=== PATIENT | female | born 1990 | race Asian ===

== ENCOUNTER 2019-02-02 05:39 | Observation (INO) | payer OTHER ==
[2019-02-02 07:17] VITALS: BMI 32.9
[2019-02-02] MEDS ORDERED: SODIUM CHLORIDE 1,000 ML IV STA ×2 (08:36→10:03)
[2019-02-02] MEDS ORDERED: ONDANSETRON 4 MG/2 ML VIAL IVPB ONE ×2 (08:36→12:16)
[2019-02-02] MEDS ORDERED: ACETAMINOPHEN 1000 MG/100 ML VIAL (NON FORMULARY) IVPB ONE (08:36)
[2019-02-02] MEDS ORDERED: ACETAMINOPHEN INJECTION 100 ML IVPB ONE (08:40)
[2019-02-02] MEDS ORDERED: ONDANSETRON 4 MG/2 ML VIAL ONE (08:40)
--- NOTE | 2019-02-02 09:08 | PDOC ---
Documentation entered by Denise Flores SCRIBE, acting as scribe for Dwayne Barnard MD. Dwayne Barnard MD: This documentation has been prepared by the Mark camarillo Sammi, SCRIBE, under my direction and personally reviewed by me in its entirety. I confirm that the documentation accurately reflects all work, treatment, procedures, and medical decision making performed by me. History of Present Illness - General Chief Complaint: Nausea/Vomiting Stated Complaint: VOMITING Time Seen by Provider: 02/02/19 07:24 - History of Present Illness Initial Comments: 02/02/19 08:38 The patient is a 28 year old who presents to the emergency department for evaluation of multiple episodes of vomiting and diarrhea with associated right lower quadrant pain since last night. The patient also notes a headache, dizziness and chills. Denies sick contact or recent travel. Denies dysuria. Denies vaginal discharge/bleeding. Denies flank pain. LMP was 2 weeks ago. Denies chest pain or shortness of breath. Denies dysuria, frequency, urgency and hematuria. PCP: Haydee Gilbert Medical history: DM Surgical history: none reported Allergies: NKA Past History - Past Medical History Allergies/Adverse Reactions: Allergies Allergy/AdvReac Type Severity Reaction Status Date / Time No Known Allergies Allergy Verified 02/02/19 07:17 Home Medications: Ambulatory Orders Levonorgestrel [Next Choice One Dose] 1.5 mg PO ASDIR 02/02/19 Levothyroxine [Synthroid -] 50 mcg PO DAILY 02/02/19 Metformin HCl [Glucophage] 1,000 mg PO HS 02/02/19 Multivitamins [Tab-A-Vit -] 1 tab PO DAILY 02/02/19 - Suicide/Smoking/Psychosocial Hx Smoking History: Never smoked Have you smoked in the past 12 months: No Information on smoking cessation initiated: No Hx Alcohol Use: Yes Drug/Substance Use Hx: No Review of Systems - Review of Systems Comments:: 02/02/19 08:39 GENERAL/CONSTITUTIONAL: (+) chills No fever. No weakness. HEAD, EYES, EARS, NOSE AND THROAT: No change in vision. No ear pain or discharge. No sore throat. CARDIOVASCULAR: No chest pain, no shortness of breath, no loss of consciousness RESPIRATORY: No cough, wheezing, or hemoptysis. GASTROINTESTINAL: (+)RLQ pain (+)nausea (+)vomiting (+)diarrhea. GENITOURINARY: No dysuria, frequency, or change in urination. MUSCULOSKELETAL: No joint or muscle swelling or pain. No neck or back pain. SKIN: No rash NEUROLOGIC: No vertigo, no change in strength/sensation. *Physical Exam - Vital Signs Last Vital Signs Temp Pulse Resp BP Pulse Ox 98 F 101 H 19 143/94 100 02/02/19 05:40 02/02/19 05:40 02/02/19 05:40 02/02/19 05:40 02/02/19 05:40 - Physical Exam Comments: 02/02/19 09:09 "GENERAL: Awake, alert, and fully oriented, in no acute distress. HEAD: No signs of trauma EYES: PERRLA, EOMI, sclera anicteric, conjunctiva clear ENT: Auricles normal inspection, hearing grossly normal, nares patent, oropharynx clear without exudates. Moist mucosa NECK: Nontender, no stepoffs, Normal ROM, supple, no lymphadenopathy, JVD, or masses LUNGS: Breath sounds equal, clear to auscultation bilaterally. No wheezes, and no crackles HEART: Regular rate and rhythm, normal S1 and S2, no murmurs, rubs or gallops ABDOMEN: + RLQ TTP, normoactive bowel sounds. No guarding, no rebound. No masses EXTREMITIES: Normal range of motion, no edema. No clubbing or cyanosis. No cords, erythema, or tenderness NEUROLOGICAL: Cranial nerves II through XII intact. 5/5 strength and sensation in all extremities, Normal speech, normal gait, normal cerebellar function SKIN: Warm, Dry, normal turgor, no rashes or lesions noted. ED Treatment Course - LABORATORY CBC & Chemistry Diagram: 02/02/19 08:50 02/02/19 08:39 Medical Decision Making - Medical Decision Making 02/02/19 09:09 28 F with N+V+D and RLQ pain. Suspect gastroenteritis but will r/o appendicitis. - Labs, UA, UPT - CTAP - IVF, tylenol 02/02/19 14:[address] equivocal, shows dilated appendix 9mm, cannot exclude appendicitis Discussed with Dr. Reyes, who will evaluate pt *DC/Admit/Observation/Transfer Diagnosis at time of Disposition: Appendicitis - Discharge Dispostion Condition at time of disposition: Fair Decision to Admit order: Yes - Referrals - Patient Instructions - Post Discharge Activity - Attestations Physician Attestion: 02/02/19 14:15 I, Dr. Dwayne Barnard MD, attest that this document has been prepared under my direction and personally reviewed by me in its entirety. I further attest, that it accurately reflects all work, treatment, procedures and medical decision -making performed by me.
[2019-02-02 09:14] LABS: BASO % 0.8 % (0-2.0); EOS % 1.8 % (0-4.5); HEMATOCRIT 40.3 % (32.4-45.2); HEMOGLOBIN 13.5 GM/dL (10.7-15.3); LYMPH % 18.3 % (8-40); MCH 28.8 pg (25.7-33.7); MCHC 33.4 g/dl (32.0-36.0); MEAN CELL VOLUME 86.4 fl (80-96); MEAN PLT VOLUME 9.1 fl (7.5-11.1); MONO % 6.2 % (3.8-10.2); NEUT % 72.9 % (42.8-82.8); PLATELET COUNT 224 K/MM3 (134-434); RBC 4.67 M/mm3 (3.60-5.2); RDW 15.5 % (11.6-15.6); WHITE BLOOD COUNT 7.8 K/mm3 (4.0-10.0)
[2019-02-02 09:28] LABS: EPI CELLS 5.9 /HPF (0-5/HPF); HYALINE CASTS 3 /lpf (0-8); PH,URINE 6.5 (5.0-8.0); URINE APPEARANCE CLEAR; URINE BACTERIA 668.4 /hpf (NEGATIVE); URINE BILIRUBIN NEGATIVE (NEGATIVE); URINE COLOR YELLOW; URINE GLUCOSE (UA) NEGATIVE (NEGATIVE); URINE KETONE 1+ (NEGATIVE); URINE LEUK ESTERASE 1+ (NEGATIVE); URINE NITRITE NEGATIVE (NEGATIVE); URINE PROTEIN NEGATIVE (NEGATIVE); URINE RBC 4 /hpf (0-4); URINE WBC 5 /hpf (0-5)
[2019-02-02 09:34] LABS: BILIRUBIN,TOTAL 0.3 mg/dL (0.2-1); BLOOD UREA NITROGEN 10.2 mg/dL (7-18); CALCIUM 9.8 mg/dL (8.5-10.1); CREATININE 0.6 mg/dL (0.55-1.3); TOT PROT 7.8 g/dl (6.4-8.2)
[2019-02-02 10:14] LABS: INR 0.98 (0.83-1.09); PROTHROMBIN TIME (PATIENT) 11.6 SEC (9.7-13.0)
[2019-02-02] MEDS ORDERED: PIPERACILLIN/TAZOB 4.5 GM 4.5 GM/100 ML BAG IVPB ONE ×2 (14:08→14:31)
--- NOTE | 2019-02-02 16:34 | HP ---
CHIEF COMPLAINT: PCP: HISTORY OF PRESENT ILLNESS: ER course was notable for: (1) (2) (3) Recent Travel: PAST MEDICAL HISTORY: PAST SURGICAL HISTORY: Social History: Smoking: Alcohol: Drugs: Family History: Allergies No Known Allergies Allergy (Verified 02/02/19 07:17) HOME MEDICATIONS: Home Medications Medication Instructions Recorded Levonorgestrel [Next Choice One 1.5 mg PO ASDIR 02/02/19 Dose] Levothyroxine [Synthroid -] 50 mcg PO DAILY 02/02/19 Metformin HCl [Glucophage] 1,000 mg PO HS 02/02/19 Metformin HCl [Glucophage] 500 mg PO AM 02/02/19 Multivitamins [Tab-A-Vit -] 1 tab PO DAILY 02/02/19 REVIEW OF SYSTEMS CONSTITUTIONAL: Absent: fever, chills, diaphoresis, generalized weakness, malaise, loss of appetite, weight change HEENT: Absent: rhinorrhea, nasal congestion, throat pain, throat swelling, difficulty swallowing, mouth swelling, ear pain, eye pain, visual changes CARDIOVASCULAR: Absent: chest pain, syncope, palpitations, irregular heart rate, lightheadedness , peripheral edema RESPIRATORY: Absent: cough, shortness of breath, dyspnea with exertion, orthopnea, wheezing, stridor, hemoptysis GASTROINTESTINAL: Absent: abdominal pain, abdominal distension, nausea, vomiting, diarrhea, constipation, melena, hematochezia GENITOURINARY: Absent: dysuria, frequency, urgency, hesitancy, hematuria, flank pain, genital pain MUSCULOSKELETAL: Absent: myalgia, arthralgia, joint swelling, back pain, neck pain SKIN: Absent: rash, itching, pallor HEMATOLOGIC/IMMUNOLOGIC: Absent: easy bleeding, easy bruising, lymphadenopathy, frequent infections ENDOCRINE: Absent: unexplained weight gain, unexplained weight loss, heat intolerance, cold intolerance NEUROLOGIC: Absent: headache, focal weakness or paresthesias, dizziness, unsteady gait, seizure, mental status changes, bladder or bowel incontinence PSYCHIATRIC: Absent: anxiety, depression, suicidal or homicidal ideation, hallucinations. PHYSICAL EXAMINATION Vital Signs - 24 hr 02/02/19 02/02/19 02/02/19 05:40 10:00 15:30 Temperature 98 F 97.7 F 98.0 F Pulse Rate 101 H Pulse Rate [ 86 92 H Right] Respiratory 19 18 18 Rate Blood Pressure 143/94 Blood Pressure 145/95 129/83 [Right Arm] O2 Sat by Pulse 100 98 96 Oximetry (%) GENERAL: Awake, alert, and fully oriented, in no acute distress. HEAD: Normal with no signs of trauma. EYES: Pupils equal, round and reactive to light, extraocular movements intact, sclera anicteric, conjunctiva clear. No lid lag. EARS, NOSE, THROAT: Ears normal, nares patent, oropharynx clear without exudates. Moist mucous membranes. NECK: Normal range of motion, supple without lymphadenopathy, JVD, or masses. LUNGS: Breath sounds equal, clear to auscultation bilaterally. No wheezes, and no crackles. No accessory muscle use. HEART: Regular rate and rhythm, normal S1 and S2 without murmur, rub or gallop. ABDOMEN: Soft, nontender, not distended, normoactive bowel sounds, no guarding, no rebound, no masses. No hepatomegaly or splenomegaly. MUSCULOSKELETAL: Normal range of motion at all joints. No bony deformities or tenderness. No CVA tenderness. UPPER EXTREMITIES: 2+ pulses, warm, well-perfused. No cyanosis. No clubbing. No peripheral edema. LOWER EXTREMITIES: 2+ pulses, warm, well-perfused. No calf tenderness. No peripheral edema. NEUROLOGICAL: Cranial nerves II-XII intact. Normal speech. Normal gait. PSYCHIATRIC: Cooperative. Good eye contact. Appropriate mood and affect. SKIN: Warm, dry, normal turgor, no rashes or lesions noted, normal capillary refill. Laboratory Results - last 24 hr 02/02/19 02/02/19 02/02/19 08:39 08:39 08:50 WBC RBC Hgb Hct MCV MCH MCHC RDW Plt Count MPV Absolute Neuts (auto) Neutrophils % Lymphocytes % Monocytes % Eosinophils % Basophils % Nucleated RBC % PT with INR INR PTT (Actin FS) 31.1 Sodium 138 Potassium 4.0 Chloride 103 Carbon Dioxide 27 Anion Gap 8 BUN 10.2 Creatinine 0.6 Est GFR (CKD-EPI)AfAm 143.77 Est GFR (CKD-EPI)NonAf 124.04 Random Glucose 112 H Calcium 9.8 Total Bilirubin 0.3 AST 39 H ALT 43 Alkaline Phosphatase 59 Total Protein 7.8 Albumin 4.0 Lipase 125 Urine Color Urine Appearance Urine pH Ur Specific [place] Urine Protein Urine Glucose (UA) Urine Ketones Urine Blood Urine Nitrite Urine Bilirubin Urine Urobilinogen Ur Leukocyte Esterase Urine WBC (Auto) Urine RBC (Auto) Urine Casts (Auto) U Epithel Cells (Auto) Urine Bacteria (Auto) Urine HCG, Qual Blood Type Antibody Screen 02/02/19 02/02/19 02/02/19 08:50 08:50 08:50 WBC 7.8 RBC 4.67 Hgb 13.5 Hct 40.3 MCV 86.4 MCH 28.8 MCHC 33.4 RDW 15.5 Plt Count 224 MPV 9.1 Absolute Neuts (auto) 5.7 Neutrophils % 72.9 Lymphocytes % 18.3 Monocytes % 6.2 Eosinophils % 1.8 Basophils % 0.8 Nucleated RBC % 0 PT with INR 11.60 INR 0.98 PTT (Actin FS) Sodium Potassium Chloride Carbon Dioxide Anion Gap BUN Creatinine Est GFR (CKD-EPI)AfAm Est GFR (CKD-EPI)NonAf Random Glucose Calcium Total Bilirubin AST ALT Alkaline Phosphatase Total Protein Albumin Lipase Urine Color Urine Appearance Urine pH Ur Specific [place] Urine Protein Urine Glucose (UA) Urine Ketones Urine Blood Urine Nitrite Urine Bilirubin Urine Urobilinogen Ur Leukocyte Esterase Urine WBC (Auto) Urine RBC (Auto) Urine Casts (Auto) U Epithel Cells (Auto) Urine Bacteria (Auto) Urine HCG, Qual Negative Blood Type Antibody Screen 02/02/19 02/02/19 02/02/19 08:50 08:50 11:07 WBC RBC Hgb Hct MCV MCH MCHC RDW Plt Count MPV Absolute Neuts (auto) Neutrophils % Lymphocytes % Monocytes % Eosinophils % Basophils % Nucleated RBC % PT with INR INR PTT (Actin FS) Sodium Potassium Chloride Carbon Dioxide Anion Gap BUN Creatinine Est GFR (CKD-EPI)AfAm Est GFR (CKD-EPI)NonAf Random Glucose Calcium Total Bilirubin AST ALT Alkaline Phosphatase Total Protein Albumin Lipase Urine Color Yellow Urine Appearance Clear Urine pH 6.5 Ur Specific [place] 1.015 Urine Protein Negative Urine Glucose (UA) Negative Urine Ketones 1+ H Urine Blood Negative Urine Nitrite Negative Urine Bilirubin Negative Urine Urobilinogen 1.0 Ur Leukocyte Esterase 1+ H Urine WBC (Auto) 5 Urine RBC (Auto) 4 Urine Casts (Auto) 3 U Epithel Cells (Auto) 5.9 Urine Bacteria (Auto) 668.4 Urine HCG, Qual Blood Type A POSITIVE A POSITIVE Antibody Screen Negative ASSESSMENT/PLAN: ATTENDING PHYSICIAN STATEMENT I saw and evaluated the patient. I reviewed the resident's note and discussed the case with the resident. I agree with the resident's findings and plan as documented. SUBJECTIVE: OBJECTIVE: ASSESSMENT AND PLAN:
--- NOTE | 2019-02-02 17:12 | PN ---
Progress Note (short form) - Note Progress Note: surgery clinically not appendicitis based on symptoms, exam, labs, and ct. full liquids. hold abx. possible d/c in am if continues to improve. full consult dictated.
--- NOTE | 2019-02-02 17:24 | PN ---
Teaching Attending Note Name of Resident: Minh Martinez ATTENDING PHYSICIAN STATEMENT I reviewed the resident's note and discussed the case with the resident. I agree with the resident's findings and plan as documented. SUBJECTIVE: 28yo F wtih no significant PMH presented to the ER wtih nausea and vomiting with RLQ x1 week. pt was taken to OR prior to my assessment and HPI as per ER staff. CT showing dilated appendix and plan for appendectomy per surgeon OBJECTIVE: Last Vital Signs Temp Pulse Resp BP Pulse Ox 98.0 F 92 H 18 129/83 96 02/02/19 15:30 02/02/19 15:30 02/02/19 15:30 02/02/19 15:30 02/02/19 15:30 ASSESSMENT AND PLAN: 28yo F wtih no significant PMH presented to the ER wtih nausea and vomiting with RLQ x1 week with dilated appendix on CT and planned for appendectomy 1. Acute appendicitis- taken straight to the OR for appendectomy prior to my assessment. NPO, IVF, prophylatic zosyn given in the ER. pain and nausea control. further recommendations per surgery. 2. +UA- will need to determine if patient ishaving symptoms. received zosyn x1 dose. check Ucx 3. DVT ppx- EAM 4. will assess patient post-operatively
--- NOTE | 2019-02-02 18:28 | CONS ---
DATE OF CONSULTATION: 02/02/2019 REASON FOR CONSULTATION: Acute appendicitis. REQUESTING PHYSICIAN: This is an emergency room consultation. BRIEF HISTORY: This is a 28-year-old female who presented to [facility] emergency room complaining of headache, nausea, vomiting and diarrhea since yesterday evening. Her pain is somewhat improved. While in the emergency room, she was noted to have some right lower quadrant tenderness. She had normal labs with unremarkable chemistries and an unremarkable urinalysis, although there were some signs of contamination. She had a CT scan of her abdomen and pelvis which showed an appendix that appeared to be normal except that it was mildly enlarged at 6 mm but it was filled with contrast as well as air all the way to the tip without enhancement of the abdominal wall, without inflammatory changes, without edema, and the abdominal wall was noted to be thin. At its largest diameter, it was noted to be 9 mm. The appendix was retrocecal in location. PAST MEDICAL HISTORY: Significant for diabetes. PAST SURGICAL HISTORY: Nil. FAMILY HISTORY: Noncontributory. ALLERGIES: She has no known drug allergies. HOME MEDICATIONS: control pills, Synthroid, metformin, multivitamins. REVIEW OF SYSTEMS: General: Admits to fatigue. Cardiac: Denies chest pain. Respiratory: Denies shortness of breath. Gastrointestinal: As stated in the HPI. Denies blood in her stool. Denies recent weight loss. States that her symptoms are currently improving and she is very hungry. Genitourinary: Denies dysuria. Musculoskeletal: Denies joint pain. Psychiatric: Denies depression or hearing voices. PHYSICAL EXAMINATION: General: This is an obese 28-year-old female in no distress. Vital signs: She is afebrile. Her vital signs are currently stable. Head: Normocephalic. Sclerae anicteric. Neck: Supple. Chest: Clear. Abdomen: Soft. There are stretch floyd but no obvious surgical scars or hernias. She has moderate right lower quadrant tenderness without guarding. She has mild left lower quadrant tenderness. She has absolutely no flank tenderness on deep percussion. Extremities: No edema. REVIEW OF LABORATORY DATA: As her HPI. IMAGING: As per HPI. ASSESSMENT: This is a 28-year-old female with headache, nausea, vomiting, diarrhea that is now improving. A CAT scan shows an enlarged appendix but one that is completely fluid filled without masses and without a thickened wall or inflammatory changes. Clinically, this is not appendicitis. It is most likely enteritis or food poisoning. The appendicitis is essentially ruled out as the clinical definition of appendicitis is an obstructed appendix. Since contrast completely filled it, it is not obstructed although it is enlarged in size. The contrast study actually confirms that it is not a mucocele, nor are there any appendiceal masses. At this point, since the patient is improving, I would recommend that she be observed. She did get a dose of antibiotic initially which will be stopped. We will put her on a diet at this point. I assume that by the morning, she will be remarkably well and can likely be discharged off antibiotics. The patient and her father, who is a dairy technologist at [facility] [facility] [employer], were offered appendectomy, even though I felt this to be unlikely appendicitis. The reason to offer the surgery was to remove diagnostic uncertainty. They both declined. The patient is currently nontoxic and clinically, I do not suspect appendicitis. DO PILO STREETER/[id number]
--- NOTE | 2019-02-02 19:53 | HP ---
CHIEF COMPLAINT: abdominal pain and nausea PCP: Dr. Haydee Gilbert HISTORY OF PRESENT ILLNESS: Jason Gong is a 28 year old female with a past medical history of DM (on metformin) and hypothyroidism who presented to the ED with a 1 day history of abdominal pain. She stated that she developed a headache, had an episode of NBNB vomiting and started to develop abdominal pain that first was located in the epigastric region that had since migrated to the RLQ. Stated that she had 5 total episodes of vomiting, all without blood. Additionally, she stated that she had some lightheadedness, generalized weakness, and several episodes of non-bloody diarrhea. This morning, she noted that she had feelings of chills. Denied close sick contacts, new food consumption, other members of the household with similar symptoms, recent travel. Last menstrual period was on the 13 of January. She presented to the ED and had an Abd/pelvis CT performed which showed a retrocecal appendix with present air and contrast but no periappendiceal inflammatory changes, and hepatomegaly with a fatty liver. The patient had no abnormalities of vitals and no gross derangements in laboratory work. She was seen by surgery, Dr. Reyes, who stated that he did not believe this presentation was appendicitis. Patient and family did not want surgery and wanted a trial of conservative management. Surgery stated to continue fluids, trial of feeds, and to discontinue antibiotics and monitor patient progress. At the time of interview, the patient stated that she felt better but stated she continued to have diarrhea since the administration of contrast fluid. She denied abdominal pain, nausea, vomiting, fever, chills, chest pain, shortness of breath, back pain, urinary hesitancy, frequency, dysuria, numbness, tingling , focal weakness. ER course was notable for: (1) CT results as above (2) IVF and tylenol (3) Surgery consult Recent Travel: denies PAST MEDICAL HISTORY: as above PAST SURGICAL HISTORY: denies Social History: Smoking: denies Alcohol: denies Drugs: denies Lives at home with . No children Family History: Stated is adopted, unclear of family history Allergies No Known Allergies Allergy (Verified 02/02/19 07:17) HOME MEDICATIONS: Home Medications Medication Instructions Recorded Levonorgestrel [Next Choice One 1.5 mg PO ASDIR 02/02/19 Dose] Levothyroxine [Synthroid -] 50 mcg PO DAILY 02/02/19 Metformin HCl [Glucophage] 1,000 mg PO HS 02/02/19 Multivitamins [Tab-A-Vit -] 1 tab PO DAILY 02/02/19 REVIEW OF SYSTEMS CONSTITUTIONAL: chills, loss of appetite Absent: fever, diaphoresis, generalized weakness, malaise, weight change HEENT: Absent: rhinorrhea, nasal congestion, throat pain, throat swelling, difficulty swallowing, CARDIOVASCULAR: lightheadedness Absent: chest pain, syncope, palpitations, irregular heart rate, peripheral edema RESPIRATORY: Absent: cough, shortness of breath, dyspnea with exertion, orthopnea, wheezing, GASTROINTESTINAL: abdominal pain, nausea, vomiting, diarrhea Absent: abdominal distension, constipation, melena, hematochezia GENITOURINARY: Absent: dysuria, frequency, urgency, hesitancy, hematuria, flank pain, MUSCULOSKELETAL: Absent: myalgia, arthralgia, joint swelling, back pain, neck pain SKIN: Absent: rash, itching, pallor HEMATOLOGIC/IMMUNOLOGIC: Absent: easy bleeding, easy bruising, lymphadenopathy, frequent infections ENDOCRINE: Absent: unexplained weight gain, unexplained weight loss, heat intolerance, cold intolerance NEUROLOGIC: Absent: headache, focal weakness or paresthesias, dizziness, unsteady gait, seizure, mental status changes, bladder or bowel incontinence PSYCHIATRIC: Absent: anxiety, depression, suicidal or homicidal ideation, hallucinations. PHYSICAL EXAMINATION Vital Signs - 24 hr 02/02/19 02/02/19 02/02/19 05:40 10:00 15:21 Temperature 98 F 97.7 F Pulse Rate 101 H Pulse Rate [ 86 Right] Respiratory 19 18 18 Rate Blood Pressure 143/94 Blood Pressure 145/95 [Right Arm] O2 Sat by Pulse 100 98 98 Oximetry (%) 02/02/19 15:30 Temperature 98.0 F Pulse Rate Pulse Rate [ 92 H Right] Respiratory 18 Rate Blood Pressure Blood Pressure 129/83 [Right Arm] O2 Sat by Pulse 96 Oximetry (%) GENERAL: Awake, alert, and fully oriented, in no acute distress. HEAD: Normal with no signs of trauma. EYES: Pupils equal, round and reactive to light, extraocular movements intact, sclera anicteric, conjunctiva clear. EARS, NOSE, THROAT: Oropharynx clear without exudates. Dry mucous membranes. NECK: Normal range of motion, supple without lymphadenopathy, JVD. LUNGS: Breath sounds equal, clear to auscultation bilaterally. No wheezes, and no crackles. No accessory muscle use. HEART: Regular rate and rhythm, normal S1 and S2 without murmur, rub or gallop. ABDOMEN: Soft, nontender, not distended, hyperactive bowel sounds, no guarding, no rebound, no masses. MUSCULOSKELETAL: Normal range of motion at all joints. No bony deformities or tenderness. No CVA tenderness. UPPER EXTREMITIES: 2+ pulses, warm, well-perfused. No cyanosis. No clubbing. No peripheral edema. LOWER EXTREMITIES: 2+ pulses, warm, well-perfused. No calf tenderness. No peripheral edema. NEUROLOGICAL: Cranial nerves II-XII intact. 5/5 muscle strength bilaterally upper and lower extremities. PSYCHIATRIC: Cooperative. Good eye contact. Appropriate mood and affect. SKIN: Warm, dry, normal turgor, no rashes or lesions noted, normal capillary refill. Laboratory Results - last 24 hr 02/02/19 02/02/19 02/02/19 08:39 08:39 08:50 WBC RBC Hgb Hct MCV MCH MCHC RDW Plt Count MPV Absolute Neuts (auto) Neutrophils % Lymphocytes % Monocytes % Eosinophils % Basophils % Nucleated RBC % PT with INR INR PTT (Actin FS) 31.1 Sodium 138 Potassium 4.0 Chloride 103 Carbon Dioxide 27 Anion Gap 8 BUN 10.2 Creatinine 0.6 Est GFR (CKD-EPI)AfAm 143.77 Est GFR (CKD-EPI)NonAf 124.04 Random Glucose 112 H Calcium 9.8 Total Bilirubin 0.3 AST 39 H ALT 43 Alkaline Phosphatase 59 Total Protein 7.8 Albumin 4.0 Lipase 125 Urine Color Urine Appearance Urine pH Ur Specific [place] Urine Protein Urine Glucose (UA) Urine Ketones Urine Blood Urine Nitrite Urine Bilirubin Urine Urobilinogen Ur Leukocyte Esterase Urine WBC (Auto) Urine RBC (Auto) Urine Casts (Auto) U Epithel Cells (Auto) Urine Bacteria (Auto) Urine HCG, Qual Blood Type Antibody Screen 02/02/19 02/02/19 02/02/19 08:50 08:50 08:50 WBC 7.8 RBC 4.67 Hgb 13.5 Hct 40.3 MCV 86.4 MCH 28.8 MCHC 33.4 RDW 15.5 Plt Count 224 MPV 9.1 Absolute Neuts (auto) 5.7 Neutrophils % 72.9 Lymphocytes % 18.3 Monocytes % 6.2 Eosinophils % 1.8 Basophils % 0.8 Nucleated RBC % 0 PT with INR 11.60 INR 0.98 PTT (Actin FS) Sodium Potassium Chloride Carbon Dioxide Anion Gap BUN Creatinine Est GFR (CKD-EPI)AfAm Est GFR (CKD-EPI)NonAf Random Glucose Calcium Total Bilirubin AST ALT Alkaline Phosphatase Total Protein Albumin Lipase Urine Color Urine Appearance Urine pH Ur Specific [place] Urine Protein Urine Glucose (UA) Urine Ketones Urine Blood Urine Nitrite Urine Bilirubin Urine Urobilinogen Ur Leukocyte Esterase Urine WBC (Auto) Urine RBC (Auto) Urine Casts (Auto) U Epithel Cells (Auto) Urine Bacteria (Auto) Urine HCG, Qual Negative Blood Type Antibody Screen 02/02/19 02/02/19 02/02/19 08:50 08:50 11:07 WBC RBC Hgb Hct MCV MCH MCHC RDW Plt Count MPV Absolute Neuts (auto) Neutrophils % Lymphocytes % Monocytes % Eosinophils % Basophils % Nucleated RBC % PT with INR INR PTT (Actin FS) Sodium Potassium Chloride Carbon Dioxide Anion Gap BUN Creatinine Est GFR (CKD-EPI)AfAm Est GFR (CKD-EPI)NonAf Random Glucose Calcium Total Bilirubin AST ALT Alkaline Phosphatase Total Protein Albumin Lipase Urine Color Yellow Urine Appearance Clear Urine pH 6.5 Ur Specific [place] 1.015 Urine Protein Negative Urine Glucose (UA) Negative Urine Ketones 1+ H Urine Blood Negative Urine Nitrite Negative Urine Bilirubin Negative Urine Urobilinogen 1.0 Ur Leukocyte Esterase 1+ H Urine WBC (Auto) 5 Urine RBC (Auto) 4 Urine Casts (Auto) 3 U Epithel Cells (Auto) 5.9 Urine Bacteria (Auto) 668.4 Urine HCG, Qual Blood Type A POSITIVE A POSITIVE Antibody Screen Negative EKG--> NSR, non specific T wave inversion in III and V3, QTc 441 ASSESSMENT/PLAN: Jason Gong is a 28 year old female with a past medical history of DM (on metformin) and hypothyroidism admitted for abdominal pain and nausea clinically suspicious for gastritis vs colitis vs enteritis, unlikely appendicitis. Abdominal Pain DM Hypothyroidism Abdominal Pain - CT results as above showing unlikely appendicitis with no clinical suspicion as per surgery, patient declined surgery - Dr. Reyes consulted, recs appreciated - continue IV fluids, NS at 100cc/hr - trial of diet and encourage oral intake - Zofran 4mg q6h prn DM - hold home meds - BGM ACHS - ISS Hypothyroidism - continue home synthroid FEN - encourage oral intake, NS at 100 cc/hr - continue to monitor electrolytes and replete as necessary - full liquid diabetic diet, advance as tolerated Prophylaxis - Lovenox 40 units subq daily Code - full code RAÚL KIRLKAND DO - PGY-1 Visit type - Emergency Visit Emergency Visit: Yes ED Registration Date: 02/02/19 Care time: The patient presented to the Emergency Department on the above date and was hospitalized for further evaluation of their emergent condition. - New Patient This patient is new to me today: Yes Date on this admission: 02/02/19 - Critical Care Critical Care patient: No
[2019-02-02] MEDS ORDERED: ONDANSETRON 4 MG/2 ML VIAL IVPUSH PRN (20:25)
[2019-02-02] MEDS ORDERED: SODIUM CHLORIDE 1,000 ML IV SCH (20:45)
[2019-02-02] MEDS: INSULIN SLIDING SCALE (NOVOLOG) 1 VIAL SQ SCH (22:01)
--- NOTE | 2019-02-02 23:25 | HOSP ---
Physical Examination Vital Signs: Vital Signs Temperature 98.6 F 02/02/19 17:15 Pulse Rate 82 02/02/19 17:15 Respiratory Rate 20 02/02/19 17:15 Blood Pressure 147/80 02/02/19 17:15 O2 Sat by Pulse Oximetry (%) 96 02/02/19 15:30 Labs: CBC, BMP 02/02/19 08:50 02/02/19 08:39 Hospitalist Encounter Assessment: 28yo woman, previously healthy, with multiple episodes of brownish-clear vomiting and nonbloody loose stools x1day suspected to have appendicitis on abd ct, however evaluated by surgery service and surgery intervention not indicated at this time. VS essentially normal, without leukocytosis. Abdominal pain has improved and she is tolerating full liquid diet at this time without any vomiting.
[2019-02-03] MEDS: INSULIN SLIDING SCALE (NOVOLOG) 1 VIAL SQ SCH ×2 (06:12→11:36)
[2019-02-03] MEDS ORDERED: LEVOTHYROXINE NA 50 MCG TABLET (FP) PO SCH (07:00)
[2019-02-03 07:34] LABS: BASO % 0.6 % (0-2.0); EOS % 3.4 % (0-4.5); HEMATOCRIT 39.6 % (32.4-45.2); HEMOGLOBIN 13.1 GM/dL (10.7-15.3); LYMPH % 25.3 % (8-40); MEAN CELL VOLUME 87.8 fl (80-96); MEAN PLT VOLUME 9.6 fl (7.5-11.1); MONO % 7.6 % (3.8-10.2); NEUT % 63.1 % (42.8-82.8); PLATELET COUNT 221 K/MM3 (134-434); RBC 4.51 M/mm3 (3.60-5.2); RDW 15.7 % (11.6-15.6)
[2019-02-03 07:47] LABS: BLOOD UREA NITROGEN 5.8 mg/dL (7-18); CREATININE 0.6 mg/dL (0.55-1.3); MAGNESIUM 2.3 mg/dL (1.8-2.4); POTASSIUM 3.7 mmol/L (3.5-5.1)
[2019-02-03 09:26] VITALS: BP 130/84; PULSE 85; TEMP 98.6
[2019-02-03] MEDS ORDERED: ENOXAPARIN NA (PORCINE) 40 MG/0.4 ML DISP.SYRIN SQ SCH (10:00)
--- NOTE | 2019-02-03 11:44 | PN ---
Teaching Attending Note Name of Resident: Minh Martinez ATTENDING PHYSICIAN STATEMENT I saw and evaluated the patient. I reviewed the resident's note and discussed the case with the resident. I agree with the resident's findings and plan as documented. SUBJECTIVE:very mild pain but overall improved. last BM was last night. diet advance and tolerated. denies Cp, SOB, fever, chills, N/V/C/D, dysuria or urinary frequency OBJECTIVE: Last Vital Signs Temp Pulse Resp BP Pulse Ox 98.6 F 85 20 130/84 98 02/03/19 09:26 02/03/19 09:26 02/03/19 09:26 02/03/19 09:26 02/03/19 09:12 General NAD CV S1 S2 RRR no murmjur/rub/gallop Lungs CTA B/L no whjeezing/rales/rhonchi Abdomen soft +RLQ tenderness on deep palpation. neg rovsing/obtruator/mcburney point. normal BS ASSESSMENT AND PLAN: 28yo F wtih PMH DM and hypothyroid presented to the ER wtih nausea and vomiting with RLQ x1 week with dilated appendix on CT and planned for appendectomy 1. Abdominal pain- seen by surgeon and based on physical exam not concerned for appendicitis. surgery cancelled. diet advanced and tolerated. on this AM pain is resolved. no more diarrhea. possible some viral gastroenteritis. can d/c home with follow up with PMD. 2. +UA-asymptomatic. will not treat at this time 3. DM- can resume metformin on thursday (02/05) as should be held for Contrast given in the ER 4. hypothyroid- resume home medications 5. DVT ppx- EAM 6. d/c home
--- NOTE | 2019-02-03 12:26 | EKG ---
Test Reason : Blood Pressure : / mmHG Vent. Rate : 084 BPM Atrial Rate : 084 BPM P-R Int : 138 ms QRS Dur : 076 ms QT Int : 374 ms P-R-T Axes : 011 034 011 degrees QTc Int : 441 ms NORMAL SINUS RHYTHM NORMAL ECG NO PREVIOUS ECGS AVAILABLE Confirmed by OLIVIA KYLE MD ([id number]) on 02/03/2019 12:25:45 PM Referred By: Confirmed By:OLIVIA KYLE MD
--- NOTE | 2019-02-03 12:44 | PN ---
Progress Note (short form) - Note Progress Note: Pt states that she isn't having any pain. Had a BM yesterday and is passing flatus. No nausea or emesis with her diet today. No pain. Vital Signs Period Temp Pulse Resp BP Sys/Cao Pulse Ox Last 24 Hr 98.0 F-98.6 F 80-92 17-20 117-147/73-84 96-98 GEN: A&0x3, NAD CV: RRR Lungs: CTA b/l ABD: soft, non-distended, non-tender. CBC, BMP 02/03/19 05:39 02/03/19 05:39 A/p: 28 yo female with resolved abd pain Case D/w with the medical team and Dr. Toribio. Clinically no evidence of intra abdominal pathology. Her symptoms have improved and she is now tolerating a diet. Plan is for discharge to home today.
--- NOTE | 2019-02-03 17:25 | DS ---
Physical Exam: SUBJECTIVE: 28 y/o female with PMH DM (on metformin) and hypothyroidism whom presented to the ED with a abdominal pain and admitted for possible appendicitis but did NOT go for surgery and was instead treated conservatively/ medical management. No events overnight. Today she is tolerating a full diet. She denies abdominal pain, NVFD. She has no CP or SOB. OBJECTIVE: Vital Signs Period Temp Pulse Resp BP Sys/Cao Pulse Ox Last 24 Hr 98.3 F-98.6 F 80-91 17-20 117-135/73-84 98 PHYSICAL EXAM GENERAL: Awake, alert, and fully oriented, in no acute distress. HEAD: Normal with no signs of trauma. EYES: Pupils equal, round and reactive to light, extraocular movements intact, sclera anicteric, conjunctiva clear. EARS, NOSE, THROAT: Oropharynx clear without exudates. Dry mucous membranes. NECK: Normal range of motion, supple without lymphadenopathy, JVD. LUNGS: Breath sounds equal, clear to auscultation bilaterally. No wheezes, and no crackles. No accessory muscle use. HEART: Regular rate and rhythm, normal S1 and S2 without murmur, rub or gallop. ABDOMEN: Soft, nontender, not distended, hyperactive bowel sounds, no guarding, no rebound, no masses. MUSCULOSKELETAL: Normal range of motion at all joints. No bony deformities or tenderness. No CVA tenderness. UPPER EXTREMITIES: 2+ pulses, warm, well-perfused. No cyanosis. No clubbing. No peripheral edema. LOWER EXTREMITIES: 2+ pulses, warm, well-perfused. No calf tenderness. No peripheral edema. NEUROLOGICAL: Cranial nerves II-XII intact. 5/5 muscle strength bilaterally upper and lower extremities. PSYCHIATRIC: Cooperative. Good eye contact. Appropriate mood and affect. SKIN: Warm, dry, normal turgor, no rashes or lesions noted, normal capillary refill. LABS Laboratory Results - last 24 hr 02/02/19 02/03/19 02/03/19 21:56 05:39 05:39 WBC 6.0 RBC 4.51 Hgb 13.1 Hct 39.6 MCV 87.8 MCH 29.0 MCHC 33.0 RDW 15.7 H Plt Count 221 MPV 9.6 Absolute Neuts (auto) 3.8 Neutrophils % 63.1 Lymphocytes % 25.3 D Monocytes % 7.6 Eosinophils % 3.4 D Basophils % 0.6 Nucleated RBC % 0 Sodium 142 Potassium 3.7 Chloride 103 Carbon Dioxide 26 Anion Gap 13 BUN 5.8 L Creatinine 0.6 Est GFR (CKD-EPI)AfAm 143.77 Est GFR (CKD-EPI)NonAf 124.04 POC Glucometer 121 Random Glucose 126 H Calcium 9.0 Magnesium 2.3 02/03/19 02/03/19 06:07 11:34 WBC RBC Hgb Hct MCV MCH MCHC RDW Plt Count MPV Absolute Neuts (auto) Neutrophils % Lymphocytes % Monocytes % Eosinophils % Basophils % Nucleated RBC % Sodium Potassium Chloride Carbon Dioxide Anion Gap BUN Creatinine Est GFR (CKD-EPI)AfAm Est GFR (CKD-EPI)NonAf POC Glucometer 195 147 Random Glucose Calcium Magnesium HOSPITAL COURSE: Date of Admission:02/02/19 28 y/o female with PMH DM (on metformin) and hypothyroidism whom presented to the ED with a abdominal pain and admitted for possible appendicitis. She presented to the ED c/o nausea and vomiting with RLQ for 1 week with dilated appendix on CT. She was evaluated by surgery and did NOT receive an appendectomy. She received fluids and her diet was advanced progressively. On the second day of hospitalization the pt's pain resolved. She reported no more diarrhea. Pt possibly experienced viral gastroenteritis. During her stay there was a + UA but she was asymptomatic. She was advised resume Metformin on Thursday (02/05) to prevent injury 2/2 contrast given in the ED. She was d/c to home. Date of Discharge: 02/03/19 Minh Martinez MD Minutes to complete discharge: 40 Discharge Summary Problems reviewed: Yes Reason For Visit: APPENDICITIS Condition: Good - Instructions Diet, Activity, Other Instructions: YOUR VISIT You came to the hospital because you had an upset stomach with vomiting and diarrhea. You were admitted to the hospital to care for these problems. Imaging showed that you did not have appendicitis. You were seen by a surgeon. You did not need surgery were treated conservatively with medicine and fluids. You may now return home. MEDICATIONS Hold your Metformin until Thursday (02/05/2019) due to the contrast medium you received in the Emergency Department. Continue taking your other home medications as directed. ADDITIONAL CARE Please make an appointment to see your primary care provider, Dr. Haydee Gilbert, 1 week from today. ADDITIONAL INFORMATION Please call 911 or come directly to the emergency department if you experience unusual headache, vision change, shortness of breath, chest pain, numbness, tingling, loss of alertness/awareness, loss of function, unusual bleeding or any alarming symptoms. Referrals: Haydee Gilbert MD [Primary Care Provider] - Disposition: HOME - Home Medications Comprehensive Discharge Medication List: Ambulatory Orders Levothyroxine [Synthroid -] 50 mcg PO DAILY 02/02/19 Metformin HCl [Glucophage] 1,000 mg PO HS 02/02/19 Multivitamins [Multivit ([facility] Formulary)] 1 tab PO DAILY 02/02/19 Ethinyl Estradiol/Drospirenone [Aretha 3 mg-0.02 mg Tablet] 1 tab PO DAILY Metformin HCl [Glucophage] 500 mg PO AM 02/03/19 This patient is new to me today: No Emergency Visit: No Critical Care patient: No - Discharge Referral Referred to [facility] No ATTENDING PHYSICIAN STATEMENT I saw and evaluated the patient. I reviewed the resident's note and discussed the case with the resident. I agree with the resident's findings and plan as documented. SUBJECTIVE: OBJECTIVE: ASSESSMENT AND PLAN:
== END 2019-02-03 13:55 | disposition home or self-care (01) ==
LOC: JER 05:39 → JERBED 15:21 → INTOOBSV 15:21 → UNDOADMOB 15:21 → J8W 17:31 → JERBED 17:31 → J8W 19:29 → JERBED 19:29
PROVIDERS: ADMIT Internal Medicine; ATTEND Internal Medicine
PROC: 0DTJ4ZZ Resection of Appendix, Percutaneous Endoscopic Approach (ICD-10-PCS; principal; 2019-02-02)
PROC: 3E03329 Introduction of Other Anti-infective into Peripheral Vein, Percutaneous Approach (ICD-10-PCS; 2019-02-02)
PROC: 3E0337Z Introduction of Electrolytic and Water Balance Substance into Peripheral Vein, Percutaneous Approach (ICD-10-PCS; 2019-02-02)
PROC: 3E033NZ Introduction of Analgesics, Hypnotics, Sedatives into Peripheral Vein, Percutaneous Approach (ICD-10-PCS; 2019-02-02)
PROC: 3E033GC Introduction of Other Therapeutic Substance into Peripheral Vein, Percutaneous Approach (ICD-10-PCS; 2019-02-02)
DX: R10.31 Right lower quadrant pain (principal); R19.7 Diarrhea, unspecified; R11.0 Nausea; R51 Headache; E11.9 Type 2 diabetes mellitus without complications; E03.9 Hypothyroidism, unspecified; K76.0 Fatty (change of) liver, not elsewhere classified; R16.0 Hepatomegaly, not elsewhere classified; Z79.84 Long term (current) use of oral hypoglycemic drugs; Z53.09 Procedure and treatment not carried out because of other contraindication
CPT/HCPCS: 36415; 74177-TC; 80048; 80053; 81003; 82962; 83690; 83735; 84703; 85025; 85610; 85730; 86850; 86900; 86901; 87086; 93005; 93010; 96361; 96365; 96375; 99285-25; G0378; J0131; J7030; Q9967